=== PATIENT | female | born 1940 | race Hispanic/Latino ===

== ENCOUNTER 2016-11-18 07:49 | Day surgery (SDC) | payer MEDICARE, OTHER ==
[2016-11-18 09:05] VITALS: BMI 29.2
[2016-11-18] MEDS ORDERED: Etomidate 20 mg/10ml Inj IV ONE (11:37)
[2016-11-18 14:01] VITALS: TEMP 97.6; O2SAT 100
[2016-11-18 14:56] VITALS: BP 128/59; PULSE 78; RESP 13
== END 2016-11-18 14:00 | disposition home or self-care (01) ==
LOC: C.ENDO 07:49
PROVIDERS: ATTEND Internal Medicine Gastroenterology
DX: Z12.11 Encounter for screening for malignant neoplasm of colon (principal); D12.5 Benign neoplasm of sigmoid colon; K57.30 Diverticulosis of large intestine without perforation or abscess without bleeding; K64.1 Second degree hemorrhoids; Z80.9 Family history of malignant neoplasm, unspecified
CPT/HCPCS: 45380; 82948; 88305; J3010

== ENCOUNTER 2017-07-04 07:05 | Inpatient (IN) | payer MEDICARE, OTHER ==
[2017-06-29 07:54] VITALS: BMI 33.5
[2017-07-04] MEDS ORDERED: Bupivacaine HCl 0.5% PF (10 ml) Inj ONE (07:32)
[2017-07-04] MEDS ORDERED: Lidocaine 2% Inj (20ml) ONE (07:32)
[2017-07-04] MEDS ORDERED: ceFAZolin IV 1 gm in Dextrose 1 GM/50 ML BAG IVPB ONE (07:32)
[2017-07-04] MEDS ORDERED: Propofol 10 mg/ml Inj (20 ML) ONE (08:07)
[2017-07-04] MEDS ORDERED: Midazolam 2 MG/2 ML VIAL ONE (08:09)
[2017-07-04] MEDS ORDERED: Lactated Ringer's 1,000 ML IV ONE (08:24)
[2017-07-04] MEDS ORDERED: Bacitracin Ointment 30 GM TUBE ONE (09:12)
[2017-07-04] MEDS ORDERED: Morphine 4 MG/ML VIAL ONE ×2 (10:38→10:42)
[2017-07-04] MEDS ORDERED: Dexamethasone 4 mg/1 ml ONE (10:47)
--- NOTE | 2017-07-04 11:53 | PCM.SURG1 ---
Surgeon's Initial Post Op Note - Surgeon's Notes Surgeon: Dr. Gabriel Rene Gas Line Installer: Dr. Nancy Tellez, Dr. Jose De Jesus Rondon Type of Anesthesia: General Endo Anesthesia Administered By: Dr. Tavera Pre-Operative Diagnosis: chronic pain right ankle with bone cyst/fragment at medial malleolus Operative Findings: see dictations. materials: vicryl 3-0, 4-0, monocril 3-0; intraop injection: 1cc of 4mg dexamethasone, 10cc of .5% marcaine plain Post-Operative Diagnosis: right ankle medial malleolus bone fragment Operation Performed: removal of right ankle medial malleolus bone cyst/bone fragment Specimen/Specimens Removed: none Estimated Blood Loss: EBL {In ML}: 2 Blood Products Given: N/A Drains Used: No Drains Post-Op Condition: Good Date of Surgery/Procedure: 07/04/17 Time of Surgery/Procedure: 08:30
[2017-07-04] MEDS ORDERED: ceFAZolin IV 1 gm in Dextrose 1 GM/50 ML BAG IVPB SCH (13:00)
--- NOTE | 2017-07-04 13:55 | CP.PCM.HP ---
History of Present Illness - History of Present Illness History of Present Illness: Patient is a 76 year old female with past medical history of CAD s/p stent placement, CVA in 2003, HTN, DM, Anxiety, Hyperlipidemia who is S/P Removal of Right Medial Malleolus Bone cyst/Bone fragment POD#0. Patient states that a year ago she was sleeping in bed when she rolled off of the bed and onto the floor. At that time she injured her right ankle. Since the injury, patient states that she has been using a cane, and has gotten injections with minimal to no relief. Patient lives alone. During the interview patient was complaining of 10/10 pain. Denies headaches, dizziness, cp, palpitations, sob, abdominal pain, urinary symptoms, changes in bowel habits. PMD: Dr Albarran Cardiology: Dr Barba Pharmacy: [facility] Allergies: Iodinated contrast, shellfish, Levofloxacin, Avelox, Latex Medications: Folic Acid 1mg daily, Triamterene/HCTZ 37.5/25mg QOD, Xanax 0.5mg BID, Metformin ER 750mg daily, Aricept 10mg PO HS, Gabapentin 200mg PO TID, Fenofibrate 145mg PO QOD, Crestor 5mg PO QOD, ASA 81mg Medical Hx: CAD s/p stent placement, CVA in 2003, HTN, Diabetes Mellitus, Anxiety, Hyperlipidemia Surgical Hx: Cholecystectomy, Skin graft, Ventral hernia repair, Left Carotid Endarterectomy, R coronary stent placement Social Hx: Smoked cigarettes for almost 40 years, quit in 2003 however started smoking again (smoked a "couple" of packs in the last two weeks because she was anxious and got into an incident with someone), Drinking 3-4 glasses of vodka in a month, Denies drug use; ambulates with a cane, lives alone, has two living children (one lives in [place] and the other lives in [place]) Family Hx: Mother - Thyroid issues, Son - Glaucoma Present on Admission - Present on Admission Any Indicators Present on Admission: No Review of Systems - Review of Systems All systems: reviewed and no additional remarkable complaints except - Constitutional Constitutional: absent: Chills, Fever - EENT Eyes: absent: Change in Vision Ears: absent: Dizziness - Cardiovascular Cardiovascular: absent: Chest Pain, Dyspnea, Palpitations - Respiratory Respiratory: absent: Cough, Wheezing - Gastrointestinal Gastrointestinal: absent: Abdominal Pain, Constipation, Cramping, Diarrhea, Nausea, Vomiting - Genitourinary Genitourinary: absent: Dysuria, Hematuria - Musculoskeletal Musculoskeletal: absent: Numbness - Neurological Neurological: absent: Dizziness, Numbness, Headaches, Tingling, Weakness - Psychiatric Psychiatric: absent: Anxiety, Depression Past Patient History - Past Medical History & Family History Past Medical History?: Yes - Past Social History Smoking Status: Current Some Days Smoker - CARDIAC Hx Cardiac Disorders: Yes (CAD STENTING 2007) Hx Hypercholesterolemia: Yes Hx Hypertension: Yes (no longer) Hx Peripheral Edema: Yes - PULMONARY Hx Respiratory Disorders: Yes (seasonal allergies) Hx Pneumonia: Yes (CHILDHOOD) - NEUROLOGICAL Hx Neurological Disorder: Yes HX Cerebrovascular Accident: Yes (2003 post speech deficit) - HEENT Hx HEENT Problems: Yes Hx Cataracts: Yes (BILAT IOL) - RENAL Hx Chronic Kidney Disease: Yes (RENAL INSUFFICIENCY) - ENDOCRINE/METABOLIC Hx Endocrine Disorders: Yes Hx Diabetes Mellitus Type 2: Yes - HEMATOLOGICAL/ONCOLOGICAL Hx Blood Disorders: Yes Hx Anemia: Yes Hx Blood Transfusions: Yes Hx Blood Transfusion Reaction: No - INTEGUMENTARY Hx Dermatological Problems: Yes Hx Hamm: Yes (right leg) - MUSCULOSKELETAL/RHEUMATOLOGICAL Hx Musculoskeletal Disorders: Yes (SPRAIN LEFT FOOT) Hx Fractures: Yes (RIGHT ANKLE ) - GASTROINTESTINAL Hx Gastrointestinal Disorders: Yes (CONSTIPATION) Hx Gall Bladder Disease: Yes (1990) - GENITOURINARY/GYNECOLOGICAL Hx Genitourinary Disorders: No - PSYCHIATRIC Hx Psychophysiologic Disorder: Yes Hx Anxiety: Yes Hx Substance Use: No - SURGICAL HISTORY Hx Surgeries: Yes Hx Cataract Extraction: Yes Hx Cardiac Catheterization: Yes Hx Cholecystectomy: Yes Hx Coronary Stent: Yes (RIGHT) Hx Herniorrhaphy: Yes Hx Vascular Surgery: Yes (left carotid ) Other/Comment: skin graft to hamm right leg - ANESTHESIA Hx Anesthesia: Yes Hx Anesthesia Reactions: No Hx Malignant Hyperthermia: No Has any member of the family had a problem w/ anesthesia?: No Meds Allergies/Adverse Reactions: Allergies Allergy/AdvReac Type Severity Reaction Status Date / Time Iodinated Contrast- Oral and Allergy Severe ANAPHYLAXIS Verified 11/18/16 09:05 IV Dye [Iodinated Contrast Media - Oral and] latex Allergy Severe ANAPHYLAXIS Verified 11/18/16 09:05 levofloxacin [From Levaquin] Allergy Severe ANAPHYLAXIS Verified 11/18/16 09:05 moxifloxacin [From Avelox] Allergy Severe ANAPHYLAXIS Verified 11/18/16 09:05 shellfish derived Allergy Severe ANAPHYLAXIS Verified 11/18/16 09:05 Physical Exam - Constitutional Appears: Well, Non-toxic Additional comments: In pain - Head Exam Head Exam: ATRAUMATIC, NORMAL INSPECTION - Eye Exam Eye Exam: EOMI, Normal appearance - ENT Exam ENT Exam: Mucous Membranes Moist - Neck Exam Neck exam: Positive for: Full Rom - Respiratory Exam Respiratory Exam: Clear to Auscultation Bilateral, NORMAL BREATHING PATTERN. absent: Rales, Rhonchi, Wheezes - Cardiovascular Exam Cardiovascular Exam: REGULAR RHYTHM, +S1, +S2. absent: Systolic Murmur - GI/Abdominal Exam GI & Abdominal Exam: Normal Bowel Sounds, Soft. absent: Guarding, Hernia, Rebound, Rigid, Tenderness - Extremities Exam Additional comments: Right lower extremity casted, patient able to move toes and sensation is intact + pedal pulses on the left lower extremity - Neurological Exam Neurological exam: Alert, Oriented x3 - Psychiatric Exam Psychiatric exam: Normal Affect, Normal Mood - Skin Skin Exam: Dry, Normal Color, Warm Results - Vital Signs Recent Vital Signs: Last Vital Signs Temp 98 F 07/04/17 11:06 Pulse 77 07/04/17 12:45 Resp 12 07/04/17 12:45 BP 115/60 07/04/17 12:45 Pulse Ox 97 07/04/17 12:45 - Labs Result Diagrams: 07/04/17 14:40 07/04/17 14:40 Labs: Laboratory Results - last 24 hr 07/04/17 07/04/17 07:51 11:12 POC Glucose (mg/dL) 101 157 H Assessment & Plan - Assessment and Plan (Free Text) Assessment: 1. History of Falls, s/p Right Medial Malleolus Bone cyst/Bone fragment removal POD#0 -Stable, afebrile -Admit to Med/Surg -F/U routine labs -Pain control: Percocet 1 tab PO Q4H prn -Physical therapy/Occupational therapy evaluation ordered -Social work referral -Podiatry on consult, Dr Conrad, help appreciated 2. History of CAD s/p stent placement -Continue Aspirin 81mg PO daily -Continue Crestor 10mg PO QOD -Continue Fenofibrate 145mg PO QOD 3. History of Diabetes Mellitus, peripheral neuropathy -Continue Metformin ER 750mg daily -Accuchecks ACHS -Gabapentin 200mg PO BID -Carbohydrate consistent diet 4. History of Hypertension -Continue Triamterene/HCTZ 37.5/25mg PO QOD -Monitor vitals 5. History of Hyperlipidemia -Continue Crestor 10mg PO QOD -Continue Fenofibrate 145mg PO QOD 6. History of CVA with residual speech deficit -Continue Aspirin 81mg PO daily -Continue Crestor 10mg PO QOD -Continue Fenofibrate 145mg PO QOD 7. Anxiety -Xanax 0.5mg BID prn Prophylactic Measures -Protonix 40mg PO daily -SCDS (left foot only) -Lovenox 40 SC daily (to start 07/06)
[2017-07-04 14:46] LABS: BASO # 0.1 K/uL (0.0-0.2); BASO % 0.7 % (0.0-2.0); EOS # 0.1 K/uL (0.0-0.7); EOS % 0.7 % (0.0-4.0); HEMOGLOBIN 14.6 g/dL (11.0-16.0); LYMPH # 1.4 K/uL (1.0-4.3); LYMPH % 11.4 % (20.0-40.0); MEAN CELL VOLUME 91.3 fL (81.0-99.0); MEAN CORPUSCULAR HEMOGLOBIN 31.2 pg (27.0-31.0); MEAN CORPUSCULAR HGB CONC 34.2 g/dL (33.0-37.0); MEAN PLATELET VOLUME 8.8 fL (7.2-11.7); MONO # 0.9 K/uL (0.0-0.8); MONO % 7.1 % (0.0-10.0); NEUT # 10.1 K/uL (1.8-7.0); NEUT % 80.1 % (50.0-75.0); NRBC % 0.1 % (0.0-2.0); RBC 4.68 Mil/uL (3.80-5.20); WHITE BLOOD COUNT 12.6 K/uL (4.8-10.8)
[2017-07-04 14:56] LABS: ALB/GLOB RATIO 1.2 (1.0-2.1); ALBUMIN 4.2 g/dL (3.5-5.0); CALCIUM 8.5 mg/dl (8.6-10.4)
[2017-07-04] MEDS ORDERED: HYDROmorphone 1 mg/ml ISec IVP ONE (16:23)
[2017-07-04] MEDS: hydroCHLOROthiazide-Triamterene 25 mg-37.5 mg Cap UD PO SCH (20:05)
[2017-07-05] MEDS: ceFAZolin IV 1 gm in Dextrose 1 GM/50 ML BAG IVPB SCH ×4 (00:30→23:55)
[2017-07-05] MEDS: Oxycodone/Acetaminophen 5/325 mg Tab PO PRN ×3 (01:59→21:36)
[2017-07-05] MEDS ORDERED: Tiotropium 18 mcg Cap For Inhalation INH SCH (08:00)
--- NOTE | 2017-07-05 08:22 | OP ---
PROCEDURE DATE: 07/04/2017 SURGEON: Gabriel Conrad DPM ASSISTANTS: Dr. Gomez, PGY2 and Dr. Rondon, PGY1. SIMULATION EDUCATOR: Eulogio Eddy. ANESTHESIA: General. PREOPERATIVE DIAGNOSIS: Chronic right ankle pain with loose bony fragments. POSTOPERATIVE DIAGNOSIS: Chronic right ankle pain with loose bony fragments. NAME OF PROCEDURE: Right ankle removal of bony fracture fragments. INDICATIONS: The patient is a 76-year-old female with the above mentioned diagnosis. The patient has exhausted all forms of conservative treatments at this time and now requires surgical intervention. The patient signed the consent after careful explanation of risks, benefits, complications, and alternatives for surgical procedure. No guarantees were given nor implied. N.p.o. status was confirmed prior to bringing the patient to the operating room. PREPARATION: The patient was brought in to the operating room and placed on the operating room table in a supine position. Time-out was performed for identification of the correct patient and procedure. After induction of general anesthesia, the right lower extremity was then prepped and draped in normal sterile manner, and the thigh tourniquet was inflated to 350 mmHg and the procedure began. DESCRIPTION OF PROCEDURE: Attention was directed to the right ankle where a 6 cm curvilinear incision was made posterior to the medial malleolus using a #15 blade. The incision was deepened through the subcutaneous tissue with sharp and blunt dissection with care being taken to identify and retract all vital neurovascular structures. All bleeders were cauterized and ligated as necessary. The incision was deepened through the periosteal tissue, and the distal aspect of the tibia and medial malleolus was visualized. The periosteum was then reflected medially and laterally. Under C-arm guidance, the loose bony fragment distal to the tip of the medial malleolus was visualized and resected. It was excised using sharp and blunt dissection and passed off of the operative field. The medial malleolus was then smoothed down with the rasp so that there were no rough edges prominent. The wound was then copiously irrigated with sterile normal saline. The subcutaneous tissue was then re-approximated with 3-0 Vicryl and 4-0 Vicryl, and the skin was re-approximated with 3-0 nylon. 10 mL of 0.5% Marcaine plain and 1 mL of dexamethasone 4 mg/kg was given in a local block-type fashion to the right ankle. Postoperative dressing including Xeroform, 4 x 4 gauze, Kerlix, and a posterior splint with Webril and Christian was applied to the right lower extremity. POSTOPERATIVE CONDITION: The patient tolerated the anesthesia and the procedure well and was escorted to the recovery room with vital signs stable and neurovascular status intact to the right lower extremity. Nancy Gomez DPM Gabriel Conrad DPM
--- NOTE | 2017-07-05 09:42 | CP.PCM.PN ---
Subjective - Date & Time of Evaluation Date of Evaluation: 07/05/17 Time of Evaluation: 09:38 - Subjective Subjective: PGY-[address] Watson. No acute events noted overnight. Patient stated she felt less pain today in her right ankle. She is S/P Removal of Right Medial Malleolus Bone cyst/Bone fragment POD#1. Denies headaches, dizziness, cp, palpitations, sob, abdominal pain, urinary symptoms, changes in bowel habits. Objective - Vital Signs/Intake and Output Vital Signs (last 24 hours): Temp Pulse Resp BP Pulse Ox 97.5 F L 75 18 125/75 95 07/05/17 08:40 07/05/17 08:40 07/05/17 08:40 07/05/17 08:40 07/05/17 08:40 Intake and Output: 07/05/17 07/05/17 06:59 18:59 Intake Total 170 Output Total 450 Balance -280 - Medications Medications: Current Medications Acetaminophen (Tylenol 325mg Tab) 650 mg PO Q6 PRN PRN Reason: Pain, Mild (1-3) Alprazolam (Xanax) 0.5 mg PO BID PRN PRN Reason: Anxiety Aspirin (Aspirin Chewable) 81 mg PO DAILY [facility] Docusate Sodium (Colace) 100 mg PO BID [facility] Last Admin: 07/04/17 22:36 Dose: Not Given Enoxaparin Sodium (Lovenox) 40 mg SC DAILY [facility] Fenofibrate (Tricor) 145 mg PO QOD6 [facility] Folic Acid (Folic Acid) 1 mg PO DAILY [facility] Gabapentin (Neurontin) 200 mg PO BID [facility] Last Admin: 07/04/17 22:48 Dose: Not Given Cefazolin Sodium/Dextrose (Ancef Iv 1 Gm Duplex) 1 gm in 50 mls @ 100 mls/hr IVPB Q8H [facility] Last Admin: 07/05/17 07:48 Dose: 100 mls/hr Metformin HCl (Glucophage Xr) 750 mg PO DAILY [facility] Oxycodone/Acetaminophen (Percocet 5/325 Mg Tab) 1 tab PO Q4H PRN PRN Reason: Pain, moderate (4-7) Stop: 07/07/17 11:10 Last Admin: 07/05/17 01:59 Dose: 1 tab Rosuvastatin Calcium (Crestor) 10 mg PO QOD6 [facility] Last Admin: 07/04/17 22:36 Dose: Not Given Tiotropium [place] (Spiriva) 18 mcg INH RQ24 [facility] Triamterene/HCTZ (Dyazide 25 Mg-37.5 Mg) 1 cap PO QOD6 [facility] Last Admin: 07/04/17 20:05 Dose: 1 cap - Labs Labs: 07/04/17 14:40 07/04/17 14:40 - Additional Findings Additional findings: Appears: Well, Non-toxic - Head Exam Head Exam: ATRAUMATIC, NORMAL INSPECTION - Eye Exam Eye Exam: EOMI, Normal appearance - ENT Exam ENT Exam: Mucous Membranes Moist - Neck Exam Neck exam: Positive for: Full Rom - Respiratory Exam Respiratory Exam: Clear to Auscultation Bilateral, NORMAL BREATHING PATTERN. absent: Rales, Rhonchi, Wheezes - Cardiovascular Exam Cardiovascular Exam: REGULAR RHYTHM, +S1, +S2. absent: Systolic Murmur - GI/Abdominal Exam GI & Abdominal Exam: Normal Bowel Sounds, Soft. absent: Guarding, Hernia, Rebound, Rigid, Tenderness - Extremities Exam Additional comments: Right lower extremity casted, patient able to move toes and sensation is intact + pedal pulses on the left lower extremity - Neurological Exam Neurological exam: Alert, Oriented x3 - Psychiatric Exam Psychiatric exam: Normal Affect, Normal Mood - Skin Skin Exam: Dry, Normal Color, Warm Assessment and Plan - Assessment and Plan (Free Text) Assessment: 1. s/p Right Medial Malleolus Bone cyst/Bone fragment removal POD#0 -s/p Right Medial Malleolus Bone cyst/Bone fragment removal POD#1 -Podiatry on consult, Dr Conrad, help appreciated * continue nonweightbearing with posterior splint and crutches/walker to RLE * d/c abx 07/06/17 -Stable, afebrile -Pain control: Percocet 1 tab PO Q4H prn; Dilaudid 0.5mg IVP Q4H PRN -Physical therapy/Occupational therapy evaluation ordered -Social work referral 2. History of CAD s/p stent placement -Continue Aspirin 81mg PO daily -Continue Crestor 10mg PO QOD -Continue Fenofibrate 145mg PO QOD 3. History of Diabetes Mellitus, peripheral neuropathy -Continue Metformin ER 750mg daily -Accuchecks ACHS -Gabapentin 200mg PO BID -Carbohydrate consistent diet 4. History of Hypertension -Continue Triamterene/HCTZ 37.5/25mg PO QOD -Monitor vitals 5. History of Hyperlipidemia -Continue Crestor 10mg PO QOD -Continue Fenofibrate 145mg PO QOD 6. History of CVA with residual speech deficit -Continue Aspirin 81mg PO daily -Continue Crestor 10mg PO QOD -Continue Fenofibrate 145mg PO QOD 7. Anxiety -Xanax 0.5mg BID prn Prophylactic Measures -Protonix 40mg PO daily -SCDS (left foot only) -Lovenox 40 SC daily (to start 07/06) DISPOSITION: Patient will be discharged to subacute rehab facility
--- NOTE | 2017-07-05 10:51 | RAD ---
PROCEDURE: Fluoroscopy up to 1 hr. HISTORY: COMPARISON: None TECHNIQUE: Standard protocol for this study/examination. FINDINGS: Total fluoroscopic time (continuous mode) utilized during the procedure: 66.6 seconds. Macro densitometry 3.69 IMPRESSION: Submitted images from the current procedure: 3.0
--- NOTE | 2017-07-05 11:12 | CP.PCM.PN ---
Subjective - Date & Time of Evaluation Date of Evaluation: 07/05/17 Time of Evaluation: 11:08 - Subjective Subjective: Patient is a 76 year old female with past medical history of CAD s/p stent placement, CVA in 2004, HTN, DM, Anxiety, Hyperlipidemia who is S/P Removal of Right Medial Malleolus Bone cyst/Bone fragment POD#1. Patient is resting comfortably in bed in NAD and AAOx3. Patient seen at bedside with attending Dr. Conrad. Patient complains of severe pain to foot and ankle. Patient states that the pain is somewhat controlled by percocet. Patient's posterior splint to right lower extremity remains clean,dry,intact. Patient denies any other acute events overnight. She denies n/f/v/c/d/sob. Objective - Vital Signs/Intake and Output Vital Signs (last 24 hours): Temp Pulse Resp BP Pulse Ox 97.5 F L 75 18 125/75 95 07/05/17 08:40 07/05/17 08:40 07/05/17 08:40 07/05/17 08:40 07/05/17 08:40 Intake and Output: 07/05/17 07/05/17 06:59 18:59 Intake Total 170 Output Total 450 Balance -280 - Medications Medications: Current Medications Acetaminophen (Tylenol 325mg Tab) 650 mg PO Q6 PRN PRN Reason: Pain, Mild (1-3) Alprazolam (Xanax) 0.5 mg PO BID PRN PRN Reason: Anxiety Last Admin: 07/05/17 09:55 Dose: 0.5 mg Aspirin (Aspirin Chewable) 81 mg PO DAILY [facility] Last Admin: 07/05/17 09:49 Dose: 81 mg Docusate Sodium (Colace) 100 mg PO BID [facility] Last Admin: 07/05/17 09:50 Dose: 100 mg Enoxaparin Sodium (Lovenox) 40 mg SC DAILY [facility] Fenofibrate (Tricor) 145 mg PO QOD6 [facility] Folic Acid (Folic Acid) 1 mg PO DAILY [facility] Last Admin: 07/05/17 09:50 Dose: 1 mg Gabapentin (Neurontin) 200 mg PO BID [facility] Last Admin: 07/05/17 09:50 Dose: 200 mg Cefazolin Sodium/Dextrose (Ancef Iv 1 Gm Duplex) 1 gm in 50 mls @ 100 mls/hr IVPB Q8H [facility] Last Admin: 07/05/17 07:48 Dose: 100 mls/hr Metformin HCl (Glucophage Xr) 750 mg PO 1800 [facility] Oxycodone/Acetaminophen (Percocet 5/325 Mg Tab) 1 tab PO Q4H PRN PRN Reason: Pain, moderate (4-7) Stop: 07/07/17 11:10 Last Admin: 07/05/17 01:59 Dose: 1 tab Rosuvastatin Calcium (Crestor) 10 mg PO QOD6 [facility] Last Admin: 07/04/17 22:36 Dose: Not Given Tiotropium [place] (Spiriva) 18 mcg INH RQ24 [facility] Triamterene/HCTZ (Dyazide 25 Mg-37.5 Mg) 1 cap PO QOD6 [facility] Last Admin: 07/04/17 20:05 Dose: 1 cap - Labs Labs: 07/04/17 14:40 07/04/17 14:40 - Constitutional Appears: Well, Non-toxic, No Acute Distress - Extremities Exam Additional comments: RLE focused: posterior splint to RLE remains c/d/i able to wiggle toes cft < 3 sec to all digits no calf pain or tenderness - Neurological Exam Neurological Exam: Alert, Awake, Oriented x3 - Psychiatric Exam Psychiatric exam: Normal Affect, Normal Mood Assessment and Plan - Assessment and Plan (Free Text) Assessment: 76 y/o female seen at bedside 1 day s/p right ankle removal of bony fragment Plan: patient evaluated and seen at bedside with attending Dr. Conrad labs and vitals reviewed; afebrile continue nonweightbearing with posterior splint and crutches/walker to RLE cont. PT cont. pain management d/c abx after today cont dvt prophylaxis patient to be d/c to subacute rehab facility podiatry will continue to monitor while patient reamins in house
[2017-07-05 11:16] LABS: BASO % 0.4 % (0.0-2.0); EOS # 0.2 K/uL (0.0-0.7); EOS % 1.7 % (0.0-4.0); HEMOGLOBIN 13.9 g/dL (11.0-16.0); LYMPH # 2.1 K/uL (1.0-4.3); LYMPH % 20.8 % (20.0-40.0); MEAN CELL VOLUME 90.9 fL (81.0-99.0); MEAN CORPUSCULAR HEMOGLOBIN 30.7 pg (27.0-31.0); MEAN CORPUSCULAR HGB CONC 33.8 g/dL (33.0-37.0); MEAN PLATELET VOLUME 8.9 fL (7.2-11.7); MONO # 0.6 K/uL (0.0-0.8); MONO % 6.3 % (0.0-10.0); NEUT # 7.2 K/uL (1.8-7.0); NEUT % 70.8 % (50.0-75.0); RBC 4.52 Mil/uL (3.80-5.20); RED CELL DISTRIBUTION WIDTH 14.1 % (11.5-14.5); WHITE BLOOD COUNT 10.2 K/uL (4.8-10.8)
[2017-07-05 11:41] LABS: ALB/GLOB RATIO 1.3 (1.0-2.1); ALBUMIN 3.9 g/dL (3.5-5.0); CALCIUM 8.5 mg/dl (8.6-10.4)
[2017-07-05] MEDS ORDERED: Potassium Chloride 20 mEq ER Tab PO ONE (15:51)
[2017-07-06 06:47] LABS: BASO # 0.1 K/uL (0.0-0.2); BASO % 1.2 % (0.0-2.0); EOS # 0.7 K/uL (0.0-0.7); EOS % 6.4 % (0.0-4.0); HEMOGLOBIN 14.3 g/dL (11.0-16.0); LYMPH # 2.4 K/uL (1.0-4.3); LYMPH % 22.1 % (20.0-40.0); MEAN CELL VOLUME 91.6 fL (81.0-99.0); MEAN CORPUSCULAR HEMOGLOBIN 30.5 pg (27.0-31.0); MEAN CORPUSCULAR HGB CONC 33.3 g/dL (33.0-37.0); MEAN PLATELET VOLUME 8.6 fL (7.2-11.7); MONO # 1.2 K/uL (0.0-0.8); MONO % 11.4 % (0.0-10.0); NEUT # 6.3 K/uL (1.8-7.0); NEUT % 58.9 % (50.0-75.0); RBC 4.68 Mil/uL (3.80-5.20); RED CELL DISTRIBUTION WIDTH 14.2 % (11.5-14.5); WHITE BLOOD COUNT 10.7 K/uL (4.8-10.8)
[2017-07-06 07:11] LABS: ALB/GLOB RATIO 1.2 (1.0-2.1); ALBUMIN 3.8 g/dL (3.5-5.0)
[2017-07-06] MEDS: ceFAZolin IV 1 gm in Dextrose 1 GM/50 ML BAG IVPB SCH (07:57)
--- NOTE | 2017-07-06 09:09 | CP.PCM.PN ---
Subjective - Date & Time of Evaluation Date of Evaluation: 07/06/17 Time of Evaluation: 09:04 - Subjective Subjective: s/p 2 days ankle surgery rt .Pt c/o pain rt ankle/heel .denies fever ,chills. Bandages changed and wound inspected . no signs of infection noted , incision site well coapted. applied xeroform dry sterile dressing rt . Kept splint off today . will order surgical shoe and keep nwb . Objective - Vital Signs/Intake and Output Vital Signs (last 24 hours): Temp Pulse Resp BP Pulse Ox 97.2 F L 82 20 159/83 H 98 07/05/17 23:15 07/05/17 23:15 07/05/17 23:15 07/05/17 23:15 07/05/17 23:15 - Medications Medications: Current Medications Acetaminophen (Tylenol 325mg Tab) 650 mg PO Q6 PRN PRN Reason: Pain, Mild (1-3) Alprazolam (Xanax) 0.5 mg PO BID PRN PRN Reason: Anxiety Last Admin: 07/05/17 21:38 Dose: 0.5 mg Aspirin (Aspirin Chewable) 81 mg PO DAILY [facility] Last Admin: 07/05/17 09:49 Dose: 81 mg Docusate Sodium (Colace) 100 mg PO BID [facility] Last Admin: 07/05/17 17:34 Dose: 100 mg Enoxaparin Sodium (Lovenox) 40 mg SC DAILY [facility] Fenofibrate (Tricor) 145 mg PO QOD6 [facility] Folic Acid (Folic Acid) 1 mg PO DAILY [facility] Last Admin: 07/05/17 09:50 Dose: 1 mg Gabapentin (Neurontin) 200 mg PO BID [facility] Last Admin: 07/05/17 17:34 Dose: 200 mg Hydromorphone HCl (Dilaudid) 0.5 mg IVP Q4H PRN PRN Reason: Pain, severe (8-10) Last Admin: 07/06/17 07:57 Dose: 0.5 mg Cefazolin Sodium/Dextrose (Ancef Iv 1 Gm Duplex) 1 gm in 50 mls @ 100 mls/hr IVPB Q8H [facility] Last Admin: 07/06/17 07:57 Dose: 100 mls/hr Metformin HCl (Glucophage Xr) 750 mg PO 1800 [facility] Last Admin: 07/05/17 17:34 Dose: 750 mg Oxycodone/Acetaminophen (Percocet 5/325 Mg Tab) 1 tab PO Q4H PRN PRN Reason: Pain, moderate (4-7) Stop: 07/07/17 11:10 Last Admin: 07/05/17 21:36 Dose: 1 tab Rosuvastatin Calcium (Crestor) 10 mg PO QOD6 [facility] Last Admin: 07/04/17 22:36 Dose: Not Given Tiotropium [place] (Spiriva) 18 mcg INH RQ24 [facility] Triamterene/HCTZ (Dyazide 25 Mg-37.5 Mg) 1 cap PO QOD6 [facility] Last Admin: 07/04/17 20:05 Dose: 1 cap - Labs Labs: 07/06/17 06:33 07/06/17 06:33
[2017-07-06] MEDS: Oxycodone/Acetaminophen 5/325 mg Tab PO PRN (09:15)
[2017-07-06] MEDS: Enoxaparin 40 mg Syringe SC SCH (09:16)
--- NOTE | 2017-07-06 11:48 | CP.PCM.PN ---
Subjective - Date & Time of Evaluation Date of Evaluation: 07/06/17 Time of Evaluation: 11:43 - Subjective Subjective: PGY-[address] Watson. No acute events noted overnight. Soft cast removed from podiatry today which relieved some of her pain. She is S/P Removal of Right Medial Malleolus Bone cyst/Bone fragment POD#2. Denies headaches, dizziness, cp, palpitations, sob, abdominal pain, urinary symptoms, changes in bowel habits. Objective - Vital Signs/Intake and Output Vital Signs (last 24 hours): Temp Pulse Resp BP Pulse Ox 98.8 F 79 20 153/79 H 95 07/06/17 08:30 07/06/17 08:30 07/06/17 08:30 07/06/17 08:30 07/06/17 08:30 - Medications Medications: Current Medications Acetaminophen (Tylenol 325mg Tab) 650 mg PO Q6 PRN PRN Reason: Pain, Mild (1-3) Alprazolam (Xanax) 0.5 mg PO BID PRN PRN Reason: Anxiety Last Admin: 07/06/17 09:27 Dose: 0.5 mg Aspirin (Aspirin Chewable) 81 mg PO DAILY [facility] Last Admin: 07/06/17 09:14 Dose: 81 mg Docusate Sodium (Colace) 100 mg PO BID [facility] Last Admin: 07/06/17 09:14 Dose: 100 mg Enoxaparin Sodium (Lovenox) 40 mg SC DAILY [facility] Last Admin: 07/06/17 09:16 Dose: 40 mg Fenofibrate (Tricor) 145 mg PO QOD6 [facility] Folic Acid (Folic Acid) 1 mg PO DAILY [facility] Last Admin: 07/06/17 09:15 Dose: 1 mg Gabapentin (Neurontin) 200 mg PO BID [facility] Last Admin: 07/06/17 09:15 Dose: 200 mg Hydromorphone HCl (Dilaudid) 0.5 mg IVP Q4H PRN PRN Reason: Pain, severe (8-10) Last Admin: 07/06/17 07:57 Dose: 0.5 mg Cefazolin Sodium/Dextrose (Ancef Iv 1 Gm Duplex) 1 gm in 50 mls @ 100 mls/hr IVPB Q8H [facility] Last Admin: 07/06/17 07:57 Dose: 100 mls/hr Metformin HCl (Glucophage Xr) 750 mg PO 1800 [facility] Last Admin: 07/05/17 17:34 Dose: 750 mg Oxycodone/Acetaminophen (Percocet 5/325 Mg Tab) 1 tab PO Q4H PRN PRN Reason: Pain, moderate (4-7) Stop: 07/07/17 11:10 Last Admin: 07/06/17 09:15 Dose: 1 tab Rosuvastatin Calcium (Crestor) 10 mg PO QOD6 [facility] Last Admin: 07/04/17 22:36 Dose: Not Given Tiotropium [place] (Spiriva) 18 mcg INH RQ24 [facility] Triamterene/HCTZ (Dyazide 25 Mg-37.5 Mg) 1 cap PO QOD6 [facility] Last Admin: 07/04/17 20:05 Dose: 1 cap - Labs Labs: 07/06/17 06:33 07/06/17 06:33 - Additional Findings Additional findings: Appears: Well, Non-toxic - Head Exam Head Exam: ATRAUMATIC, NORMAL INSPECTION - Eye Exam Eye Exam: EOMI, Normal appearance - ENT Exam ENT Exam: Mucous Membranes Moist - Neck Exam Neck exam: Positive for: Full Rom - Respiratory Exam Respiratory Exam: Clear to Auscultation Bilateral, NORMAL BREATHING PATTERN. absent: Rales, Rhonchi, Wheezes - Cardiovascular Exam Cardiovascular Exam: REGULAR RHYTHM, +S1, +S2. absent: Systolic Murmur - GI/Abdominal Exam GI & Abdominal Exam: Normal Bowel Sounds, Soft. absent: Guarding, Hernia, Rebound, Rigid, Tenderness - Extremities Exam Additional comments: Right lower extremity w/ dressing which was c/d/i, patient able to move toes and sensation is intact + pedal pulses on the left lower extremity - Neurological Exam Neurological exam: Alert, Oriented x3 - Psychiatric Exam Psychiatric exam: Normal Affect, Normal Mood - Skin Skin Exam: Dry, Normal Color, Warm Assessment and Plan - Assessment and Plan (Free Text) Assessment: 1. s/p Right Medial Malleolus Bone cyst/Bone fragment removal POD#0 -s/p Right Medial Malleolus Bone cyst/Bone fragment removal POD#1 -Podiatry on consult, Dr Conrad, help appreciated * continue nonweightbearing with posterior splint and crutches/walker to RLE * d/c cefazolin 07/06/17 -Stable, afebrile -Pain control: Percocet 1 tab PO Q4H prn; Dilaudid 0.5mg IVP Q4H PRN -Physical therapy/Occupational therapy evaluation ordered -Social work referral 2. History of CAD s/p stent placement -Continue Aspirin 81mg PO daily -Continue Crestor 10mg PO QOD -Continue Fenofibrate 145mg PO QOD 3. History of Diabetes Mellitus, peripheral neuropathy -Continue Metformin ER 750mg daily -Accuchecks ACHS -Gabapentin 200mg PO BID -Carbohydrate consistent diet 4. History of Hypertension -Continue Triamterene/HCTZ 37.5/25mg PO QOD -Monitor vitals 5. History of Hyperlipidemia -Continue Crestor 10mg PO QOD -Continue Fenofibrate 145mg PO QOD 6. History of CVA with residual speech deficit -Continue Aspirin 81mg PO daily -Continue Crestor 10mg PO QOD -Continue Fenofibrate 145mg PO QOD 7. Anxiety -Xanax 0.5mg BID prn Prophylactic Measures -Protonix 40mg PO daily -SCDS (left foot only), Heparin 5000u SC Q8H -Lovenox 40 SC daily (to start 07/06) DISPOSITION: Patient will be discharged to subacute rehab facility
[2017-07-06] MEDS: hydroCHLOROthiazide-Triamterene 25 mg-37.5 mg Cap UD PO SCH ×2 (19:32→19:58)
[2017-07-07 06:46] LABS: BASO # 0.1 K/uL (0.0-0.2); BASO % 0.8 % (0.0-2.0); EOS # 0.9 K/uL (0.0-0.7); EOS % 8.4 % (0.0-4.0); HEMOGLOBIN 14.4 g/dL (11.0-16.0); LYMPH # 1.7 K/uL (1.0-4.3); LYMPH % 16.4 % (20.0-40.0); MEAN CELL VOLUME 91.3 fL (81.0-99.0); MEAN CORPUSCULAR HEMOGLOBIN 29.5 pg (27.0-31.0); MEAN CORPUSCULAR HGB CONC 32.3 g/dL (33.0-37.0); MEAN PLATELET VOLUME 8.5 fL (7.2-11.7); MONO # 1.2 K/uL (0.0-0.8); NEUT # 6.5 K/uL (1.8-7.0); NEUT % 62.4 % (50.0-75.0); RBC 4.9 Mil/uL (3.80-5.20); RED CELL DISTRIBUTION WIDTH 13.9 % (11.5-14.5); WHITE BLOOD COUNT 10.4 K/uL (4.8-10.8)
[2017-07-07 07:56] LABS: ALB/GLOB RATIO 1.2 (1.0-2.1); ALBUMIN 3.8 g/dL (3.5-5.0); ALT/SGPT 19 U/L (9-52); AST/SGOT 34 U/L (14-36); BLOOD UREA NITROGEN 13 mg/dL (7-17); CALCIUM 8.3 mg/dl (8.6-10.4); GFR AFRICAN-AMERICAN > 60; GFR NON-AFRICAN AMERICAN 54
[2017-07-07] MEDS: Enoxaparin 40 mg Syringe SC SCH (09:49)
[2017-07-07] MEDS: Oxycodone/Acetaminophen 5/325 mg Tab PO PRN (11:11)
--- NOTE | 2017-07-07 13:36 | CP.PCM.PN ---
Subjective - Date & Time of Evaluation Date of Evaluation: 07/07/17 Time of Evaluation: 13:32 - Subjective Subjective: Patient is a 76 year old female seen at bedside with attending Dr. Conrad 3 days S/P Removal of Right Medial Malleolus Bone cyst/Bone fragment. Patient is resting comfortably in bed in NAD and AAOx3. Patient complains of severe pain to foot and ankle and is icing the ankle at the time of visit. Patient states that she did PT yesterday but was unable to hop very far without having pain in her right ankle and foot. Patient's dressing to RLE remains c/d/i. Patient denies any other acute events overnight. She denies n/f/v/c/d/sob. Objective - Vital Signs/Intake and Output Vital Signs (last 24 hours): Temp Pulse Resp BP Pulse Ox 97.7 F 78 18 135/83 96 07/07/17 08:15 07/07/17 08:15 07/07/17 08:15 07/07/17 08:15 07/07/17 08:15 Intake and Output: 07/07/17 07/07/17 06:59 18:59 Intake Total 320 Balance 320 - Medications Medications: Current Medications Acetaminophen (Tylenol 325mg Tab) 650 mg PO Q6 PRN PRN Reason: Pain, Mild (1-3) Alprazolam (Xanax) 0.5 mg PO BID PRN PRN Reason: Anxiety Last Admin: 07/07/17 10:01 Dose: 0.5 mg Aspirin (Aspirin Chewable) 81 mg PO DAILY [facility] Last Admin: 07/07/17 09:49 Dose: 81 mg Docusate Sodium (Colace) 100 mg PO BID [facility] Last Admin: 07/07/17 09:49 Dose: 100 mg Enoxaparin Sodium (Lovenox) 40 mg SC DAILY [facility] Last Admin: 07/07/17 09:49 Dose: 40 mg Fenofibrate (Tricor) 145 mg PO QOD6 [facility] Last Admin: 07/06/17 19:59 Dose: Not Given Folic Acid (Folic Acid) 1 mg PO DAILY [facility] Last Admin: 07/07/17 09:49 Dose: 1 mg Gabapentin (Neurontin) 200 mg PO BID [facility] Last Admin: 07/07/17 09:49 Dose: 200 mg Hydromorphone HCl (Dilaudid) 0.5 mg IVP Q4H PRN PRN Reason: Pain, severe (8-10) Last Admin: 07/06/17 07:57 Dose: 0.5 mg Piperacillin Sod/Tazobactam (Sod 3.375 gm/ Sodium Chloride) 100 mls @ 200 mls/ hr IVPB Q6H [facility] Vancomycin HCl 1,000 mg/ (Sodium Chloride) 250 mls @ 166.6 mls/hr IVPB Q12H [facility] Metformin HCl (Glucophage Xr) 750 mg PO 1800 [facility] Last Admin: 07/06/17 19:49 Dose: Not Given Rosuvastatin Calcium (Crestor) 10 mg PO QOD6 [facility] Last Admin: 07/06/17 19:32 Dose: 10 mg Tiotropium Elliott (Spiriva) 18 mcg INH RQ24 [facility] Triamterene/HCTZ (Dyazide 25 Mg-37.5 Mg) 1 cap PO QOD6 [facility] Last Admin: 07/06/17 19:58 Dose: Not Given - Labs Labs: 07/07/17 06:22 07/07/17 06:22 - Constitutional Appears: Well, Non-toxic, No Acute Distress - Extremities Exam Additional comments: RLE focused: vasc: lightly palpable pedal pulses, TG warm to warm, CFT < 4 sec to all digits , able to wiggle toes neuro: grossly intact derm: surgical incision site well coapted, sutures intact, no dehiscence, no ascending cellulitis, nonpitting edema and erythema noted to dorsum of foot and ankle, hypopigmented and maceration noted to anterior ankle, no fluctuance, no active bleeding or drainage ortho: able to wiggle toes and slightly DF and PF foot, guarding due to pain - Neurological Exam Neurological Exam: Alert, Awake, Oriented x3 - Psychiatric Exam Psychiatric exam: Normal Affect Assessment and Plan - Assessment and Plan (Free Text) Assessment: 76 y/o female seen at bedside 3 days s/p right ankle medial malleolus excision of bone cyst/ fragment Plan: patient evaluated and chart reviewed seen at bedside with attending Dr. Conrad labs and vitals reviewed; afebrile. WBC 10.4 applied xeroform, DSD to RLE cont. PT cont. pain mgmt ID consulted for redness/swelling around ankle started Vanc/zosyn podiatry will continue to monitor closely
[2017-07-07] MEDS: Piperacill/Tazo 3.375gm in Dex 3.375 GM/50 ML BAG IVPB SCH ×2 (14:20→19:59)
[2017-07-07] MEDS: Vancomycin 1 gm/NS 200 ml 1 GM/200 ML BAG IVPB SCH (15:02)
--- NOTE | 2017-07-07 18:01 | CP.PCM.CON ---
History of Present Illness - History of Present Illness History of Present Illness: 76 year old female is S/P Removal of Right Medial Malleolus Bone cyst/Bone fragment and referred for ID eval and antibiotic management post op for periincisional redness and swelling . Patient states that a year ago she was sleeping in bed when she rolled off of the bed and onto the floor. At that time she injured her right ankle. Since the injury, patient states that she has been using a cane, and has gotten injections with minimal to no relief. Allergies: Iodinated contrast, shellfish, Levofloxacin, Avelox, Latex Medications: Folic Acid 1mg daily, Triamterene/HCTZ 37.5/25mg QOD, Xanax 0.5mg BID, Metformin ER 750mg daily, Aricept 10mg PO HS, Gabapentin 200mg PO TID, Fenofibrate 145mg PO QOD, Crestor 5mg PO QOD, ASA 81mg Medical Hx: CAD s/p stent placement, CVA in 2003, HTN, Diabetes Mellitus, Anxiety, Hyperlipidemia Surgical Hx: Cholecystectomy, Skin graft, Ventral hernia repair, Left Carotid Endarterectomy, R coronary stent placement Social Hx: Smoked cigarettes for almost 40 years, quit in 2003 however started smoking again (smoked a "couple" of packs in the last two weeks because she was anxious and got into an incident with someone), Drinking 3-4 glasses of vodka in a month, Denies drug use; ambulates with a cane, lives alone, has two living children (one lives in [place] and the other lives in [place]) Family Hx: Mother - Thyroid issues, Son - Glaucoma Review of Systems - Review of Systems All systems: reviewed and no additional remarkable complaints except - Constitutional Constitutional: As Per HPI - EENT Eyes: absent: As Per HPI, Blind Spots, Blurred Vision, Change in Vision, Decreased Night Vision, Diplopia, Discharge, Dry Eye, Exophthalmos, Floaters, Irritation, Itchy Eyes, Loss of Peripheral Vision, Pain, Photophobia, Requires Corrective Lenses, Sees Flashes, Spots in Vision, Tunnel Vision, Other Visual Disturbances, Loss of Vision, Other Ears: absent: As Per HPI, Decreased Hearing, Ear Discharge, Ear Pain, Tinnitus, Abnormal Hearing, Disequilibrium, Dizziness, Other Nose/Mouth/Throat: absent: As Per HPI, Epistaxis, Nasal Congestion, Nasal Discharge, Nasal Obstruction, Nasal Trauma, Nose Pain, Post Nasal Drip, Sinus Pain, Sinus Pressure, Bleeding Gums, Change in Voice, Dental Pain, Dry Mouth, Dysphagia, Halitosis, Hoarsness, Lip Swelling, Mouth Lesions, Mouth Pain, Odynophagia, Sore Throat, Throat Swelling, Tongue Swelling, Facial Pain, Neck Pain, Neck Mass, Other - Breasts Breasts: absent: As Per HPI, Change in Shape, Mass, Pain, Nipple Discharge, Nipple Inversion, Skin Changes, Swelling, Other - Cardiovascular Cardiovascular: absent: As Per HPI, Acrocyanosis, Chest Pain, Chest Pain at Rest , Chest Pain with Activity, Claudication, Diaphoresis, Dyspnea, Dyspnea on Exertion, Edema, Irregular Heart Rhythm, Pain Radiating to Arm/Neck/Jaw, Leg Edema, Leg Ulcers, Lightheadedness, Orthopnea, Palpitations, Paroxysmal Nocturnal Dyspnea, Pedal Edema, Radiating Pain, Rapid Heart Rate, Slow Heart Rate, Syncope, Other - Respiratory Respiratory: absent: As Per HPI, Cough, Dyspnea, Hemoptysis, Dyspnea on Exertion , Wheezing, Snoring, Stridor, Pain on Inspiration, Chest Congestion, Excessive Mucous Production, Change in Mucous Color, Pain with Coughing, Other - Gastrointestinal Gastrointestinal: absent: As Per HPI, Abdominal Pain, Belching, Bloating, Change in Bowel Habits, Change in Stool Character, Coffee Ground Emesis, Constipation, Cramping, Diarrhea, Dyspepsia, Dysphagia, Early Satiety, Excessive Flatus, Fecal Incontinence, Heartburn, Hematemesis, Hematochezia, Loose Stools, Melena, Nausea, Odynophagia, Temesmus, Vomiting, Other - Genitourinary Genitourinary: absent: As Per HPI, Change in Urinary Stream, Difficulty Urinating, Dysuria, Flank Pain, Hematuria, Pyuria, Nocturia, Urinary Incontinence, Urinary Frequency, Urinary Hesitance, Urinary Urgency, Voiding Freq/Small Amts, Freq UTI, Hx Renal/Bladder Calculi, Hx /Renal Surgery, Bladder Distension, Other - Reproductive: Female Reproductive:Female: absent: As Per HPI, Amenorrhea, Amenorrhea/ Control, Currently Menstual, Cycle <21 Days, Cycle >35 Days, Cycle Variable, Menses 1-7 Days, Menses >/= 8 Days, Menses Variable, Cycle > 4 Weeks Between, No Menses for 6 Months, Heavy Menses, Light Menses, Normal Menses, Spotting Between Cycles , S/P Hysterectomy, Menopausal, Post Menopausal, Premenarche, Abnormal Vaginal Bleeding, Dysmenorrhea, Dyspareunia, Genital Lesions, Genital Pruritis, Pelvic Pain, Prolapse Symptoms, Sexual Dysfunction, Vaginal Discharge, Vaginal Dryness , Vaginal Odor, Vaginal Pruritis, Other - Menstruation Menstruation: absent: As Per HPI, Amenorrhea, Amenorrhea/ Control, Currently Menstual, Cycle <21 Days, Cycle >35 Days, Cycle Variable, Menses 1-7 Days, Menses >/= 8 Days, Menses Variable, Cycle > 4 Weeks Between, No Menses for 6 Months, Heavy Menses, Light Menses, Normal Menses, Spotting Between Cycles , S/P Hysterectomy, Menopausal, Post Menopausal, Premenarche, Abnormal Vaginal Bleeding, Dysmenorrhea, Other - Musculoskeletal Musculoskeletal: As Per HPI - Integumentary Integumentary: As Per HPI - Neurological Neurological: absent: As Per HPI, Abnormal Gait, Abnormal Hearing, Abnormal Movements, Abnormal Speech, Behavioral Changes, Burning Sensations, Confusion, Convulsions, Disequilibrium, Dizziness, Numbness, Focal Weakness, Frequent Falls , Headaches, Lack of Coordination, Loss of Vision, Memory Loss, Paresthesias, Radicular Pain, Restless Legs, Sensory Deficit, Syncope, Tingling, Tremor, Vertigo, Weakness, Other Visual Disturbances, Other - Psychiatric Psychiatric: absent: As Per HPI, Abnormal Sleep Pattern, Anhedonia, Anxiety, Auditory Hallucinations, Behavioral Changes, Change in Appetite, Change in Libido, Confusion, Depression, Difficulty Concentrating, Hallucinations, Homicidal Ideation, Hopelessness, Irritability, Memory Loss, Mood Swings, Panic Attacks, Paranoia, Suicidal Ideation, Visual Hallucinations, Tactile Hallucinations, Other - Endocrine Endocrine: absent: As Per HPI, Change in Body Appearance, Change in Libido, Cold Intolorance, Deepening of Voice, Excessive Sweating, Fatigue, Flushing, Heat Intolorance, Increase in Ring/Shoe/Hat Size, Palpitations, Polydipsia, Polyphagia, Polyuria, Other - Hematologic/Lymphatic Hematologic: absent: As Per HPI, Easy Bleeding, Easy Bruising, Lymphadenopathy, Other Past Patient History - Past Medical History & Family History Past Medical History?: Yes - Past Social History Smoking Status: Current Some Days Smoker - CARDIAC Hx Cardiac Disorders: Yes (CAD s/p stent) Hx Hypertension: Yes - PULMONARY Hx Respiratory Disorders: Yes (seasonal allergies) Hx Pneumonia: Yes (CHILDHOOD) - NEUROLOGICAL HX Cerebrovascular Accident: Yes - HEENT Hx HEENT Problems: Yes Hx Cataracts: Yes (BILAT IOL) - RENAL Hx Chronic Kidney Disease: Yes (RENAL INSUFFICIENCY) - ENDOCRINE/METABOLIC Hx Diabetes Mellitus Type 2: Yes - HEMATOLOGICAL/ONCOLOGICAL Hx Blood Disorders: Yes Hx Anemia: Yes Hx Blood Transfusions: Yes Hx Blood Transfusion Reaction: No - INTEGUMENTARY Hx Dermatological Problems: Yes Hx Hamm: Yes (right leg) - MUSCULOSKELETAL/RHEUMATOLOGICAL Hx Falls: Yes - GASTROINTESTINAL Hx Gastrointestinal Disorders: Yes (CONSTIPATION) Hx Gall Bladder Disease: Yes (1990) - GENITOURINARY/GYNECOLOGICAL Hx Genitourinary Disorders: No - PSYCHIATRIC Hx Substance Use: No - SURGICAL HISTORY Hx Surgeries: Yes Hx Cataract Extraction: Yes Hx Cardiac Catheterization: Yes Hx Cholecystectomy: Yes Hx Coronary Stent: Yes (RIGHT) Hx Herniorrhaphy: Yes Hx Vascular Surgery: Yes (left carotid ) Other/Comment: skin graft to hamm right leg - ANESTHESIA Hx Anesthesia: Yes Hx Anesthesia Reactions: No Hx Malignant Hyperthermia: No Has any member of the family had a problem w/ anesthesia?: No Meds Allergies/Adverse Reactions: Allergies Allergy/AdvReac Type Severity Reaction Status Date / Time Iodinated Contrast- Oral and Allergy Severe ANAPHYLAXIS Verified 11/18/16 09:05 IV Dye [Iodinated Contrast Media - Oral and] latex Allergy Severe ANAPHYLAXIS Verified 11/18/16 09:05 levofloxacin [From Levaquin] Allergy Severe ANAPHYLAXIS Verified 11/18/16 09:05 moxifloxacin [From Avelox] Allergy Severe ANAPHYLAXIS Verified 11/18/16 09:05 shellfish derived Allergy Severe ANAPHYLAXIS Verified 11/18/16 09:05 - Medications Medications: Current Medications Acetaminophen (Tylenol 325mg Tab) 650 mg PO Q6 PRN PRN Reason: Pain, Mild (1-3) Alprazolam (Xanax) 0.5 mg PO BID PRN PRN Reason: Anxiety Last Admin: 07/07/17 10:01 Dose: 0.5 mg Aspirin (Aspirin Chewable) 81 mg PO DAILY [facility] Last Admin: 07/07/17 09:49 Dose: 81 mg Docusate Sodium (Colace) 100 mg PO BID [facility] Last Admin: 07/07/17 17:40 Dose: 100 mg Enoxaparin Sodium (Lovenox) 40 mg SC DAILY [facility] Last Admin: 07/07/17 09:49 Dose: 40 mg Fenofibrate (Tricor) 145 mg PO QOD6 [facility] Last Admin: 07/06/17 19:59 Dose: Not Given Folic Acid (Folic Acid) 1 mg PO DAILY [facility] Last Admin: 07/07/17 09:49 Dose: 1 mg Gabapentin (Neurontin) 200 mg PO BID [facility] Last Admin: 07/07/17 17:41 Dose: 200 mg Hydromorphone HCl (Dilaudid) 0.5 mg IVP Q4H PRN PRN Reason: Pain, severe (8-10) Last Admin: 07/06/17 07:57 Dose: 0.5 mg Piperacillin Sod/Tazobactam Sod (Zosyn 3.375 Gm Iv Premix) 3.375 gm in 50 mls @ 200 mls/hr IVPB Q6H [facility] Last Admin: 07/07/17 14:20 Dose: 200 mls/hr Vancomycin/Sodium Chloride (Vancomycin 1 Gm/Ns 200 Ml) 1 gm in 200 mls @ 166.6 mls/hr IVPB Q12H [facility] Stop: 07/12/17 14:31 Last Admin: 07/07/17 15:02 Dose: 166.6 mls/hr Metformin HCl (Glucophage Xr) 750 mg PO 1800 [facility] Last Admin: 07/07/17 17:40 Dose: 750 mg Rosuvastatin Calcium (Crestor) 10 mg PO QOD6 [facility] Last Admin: 07/06/17 19:32 Dose: 10 mg Tiotropium [place] (Spiriva) 18 mcg INH RQ24 [facility] Triamterene/HCTZ (Dyazide 25 Mg-37.5 Mg) 1 cap PO QOD6 [facility] Last Admin: 07/06/17 19:58 Dose: Not Given Physical Exam - Constitutional Appears: Non-toxic, Chronically Ill - Head Exam Head Exam: NORMOCEPHALIC - Eye Exam Eye Exam: PERRL. absent: Scleral icterus - ENT Exam ENT Exam: Mucous Membranes Dry, Normal External Ear Exam - Neck Exam Neck exam: Negative for: Lymphadenopathy - Respiratory Exam Respiratory Exam: Decreased Breath Sounds - Cardiovascular Exam Cardiovascular Exam: REGULAR RHYTHM - GI/Abdominal Exam GI & Abdominal Exam: Diminished Bowel Sounds, Soft. absent: Tenderness - Rectal Exam Rectal Exam: Deferred - Exam Exam: NORMAL INSPECTION - Extremities Exam Extremities exam: Positive for: pedal edema, tenderness, pedal pulses present. Negative for: calf tenderness - Back Exam Back exam: absent: CVA tenderness (L), CVA tenderness (R) - Neurological Exam Neurological exam: Alert, CN II-XII Intact, Oriented x3, Reflexes Normal - Psychiatric Exam Psychiatric exam: Normal Mood - Skin Skin Exam: Dry Results - Vital Signs Recent Vital Signs: Last Vital Signs Temp 97.6 F 07/07/17 15:00 Pulse 72 07/07/17 15:00 Resp 20 07/07/17 15:00 BP 115/73 07/07/17 15:00 Pulse Ox 96 07/07/17 15:00 - Labs Result Diagrams: 07/07/17 06:22 07/07/17 06:22 Labs: Laboratory Results - last 24 hr 07/06/17 07/07/17 07/07/17 21:51 06:22 06:22 WBC 10.4 RBC 4.90 Hgb 14.4 Hct 44.7 MCV 91.3 MCH 29.5 MCHC 32.3 L RDW 13.9 Plt Count 348 MPV 8.5 Neut % (Auto) 62.4 Lymph % (Auto) 16.4 L [place] % (Auto) 12.0 H Eos % (Auto) 8.4 H Baso % (Auto) 0.8 Neut # 6.5 Lymph # 1.7 [place] # 1.2 H Eos # 0.9 H Baso # 0.1 Sodium 133 Potassium 3.7 Chloride 100 Carbon Dioxide 27 Anion Gap 10 BUN 13 Creatinine 1.0 Est GFR ( Amer) > 60 Est GFR (Non-Af Amer) 54 POC Glucose (mg/dL) 107 Random Glucose 109 H Calcium 8.3 L Total Bilirubin 0.6 AST 34 ALT 19 Alkaline Phosphatase 55 Total Protein 7.1 Albumin 3.8 Globulin 3.3 Albumin/Globulin Ratio 1.2 07/07/17 07/07/17 07/07/17 06:23 12:07 12:10 WBC RBC Hgb Hct MCV MCH MCHC RDW Plt Count MPV Neut % (Auto) Lymph % (Auto) [place] % (Auto) Eos % (Auto) Baso % (Auto) Neut # Lymph # [place] # Eos # Baso # Sodium Potassium Chloride Carbon Dioxide Anion Gap BUN Creatinine Est GFR ( Amer) Est GFR (Non-Af Amer) POC Glucose (mg/dL) 106 67 62 L Random Glucose Calcium Total Bilirubin AST ALT Alkaline Phosphatase Total Protein Albumin Globulin Albumin/Globulin Ratio 07/07/17 07/07/17 07/07/17 12:44 13:16 16:49 WBC RBC Hgb Hct MCV MCH MCHC RDW Plt Count MPV Neut % (Auto) Lymph % (Auto) [place] % (Auto) Eos % (Auto) Baso % (Auto) Neut # Lymph # [place] # Eos # Baso # Sodium Potassium Chloride Carbon Dioxide Anion Gap BUN Creatinine Est GFR ( Amer) Est GFR (Non-Af Amer) POC Glucose (mg/dL) 123 H 171 H 92 Random Glucose Calcium Total Bilirubin AST ALT Alkaline Phosphatase Total Protein Albumin Globulin Albumin/Globulin Ratio Assessment & Plan - Assessment and Plan (Free Text) Assessment: post op redness and swelling await cultures cont iv rx for 14 days
--- NOTE | 2017-07-07 18:09 | CP.PCM.PN ---
Subjective - Date & Time of Evaluation Date of Evaluation: 07/07/17 Time of Evaluation: 15:00 - Subjective Subjective: PGY-[address] Watson. No acute events noted overnight. Soft cast removed from podiatry today which relieved some of her pain. She is S/P Removal of Right Medial Malleolus Bone cyst/Bone fragment POD#3. Denies headaches, dizziness, cp, palpitations, sob, abdominal pain, urinary symptoms, changes in bowel habits. Objective - Vital Signs/Intake and Output Vital Signs (last 24 hours): Temp Pulse Resp BP Pulse Ox 97.6 F 72 20 115/73 96 07/07/17 15:00 07/07/17 15:00 07/07/17 15:00 07/07/17 15:00 07/07/17 15:00 Intake and Output: 07/07/17 07/07/17 06:59 18:59 Intake Total 320 Balance 320 - Medications Medications: Current Medications Acetaminophen (Tylenol 325mg Tab) 650 mg PO Q6 PRN PRN Reason: Pain, Mild (1-3) Alprazolam (Xanax) 0.5 mg PO BID PRN PRN Reason: Anxiety Last Admin: 07/07/17 10:01 Dose: 0.5 mg Aspirin (Aspirin Chewable) 81 mg PO DAILY [facility] Last Admin: 07/07/17 09:49 Dose: 81 mg Docusate Sodium (Colace) 100 mg PO BID [facility] Last Admin: 07/07/17 17:40 Dose: 100 mg Enoxaparin Sodium (Lovenox) 40 mg SC DAILY [facility] Last Admin: 07/07/17 09:49 Dose: 40 mg Fenofibrate (Tricor) 145 mg PO QOD6 [facility] Last Admin: 07/06/17 19:59 Dose: Not Given Folic Acid (Folic Acid) 1 mg PO DAILY [facility] Last Admin: 07/07/17 09:49 Dose: 1 mg Gabapentin (Neurontin) 200 mg PO BID [facility] Last Admin: 07/07/17 17:41 Dose: 200 mg Hydromorphone HCl (Dilaudid) 0.5 mg IVP Q4H PRN PRN Reason: Pain, severe (8-10) Last Admin: 07/06/17 07:57 Dose: 0.5 mg Piperacillin Sod/Tazobactam Sod (Zosyn 3.375 Gm Iv Premix) 3.375 gm in 50 mls @ 200 mls/hr IVPB Q6H [facility] Last Admin: 07/07/17 14:20 Dose: 200 mls/hr Vancomycin/Sodium Chloride (Vancomycin 1 Gm/Ns 200 Ml) 1 gm in 200 mls @ 166.6 mls/hr IVPB Q12H [facility] Stop: 07/12/17 14:31 Last Admin: 07/07/17 15:02 Dose: 166.6 mls/hr Metformin HCl (Glucophage Xr) 750 mg PO 1800 [facility] Last Admin: 07/07/17 17:40 Dose: 750 mg Rosuvastatin Calcium (Crestor) 10 mg PO QOD6 [facility] Last Admin: 07/06/17 19:32 Dose: 10 mg Tiotropium [place] (Spiriva) 18 mcg INH RQ24 [facility] Triamterene/HCTZ (Dyazide 25 Mg-37.5 Mg) 1 cap PO QOD6 [facility] Last Admin: 07/06/17 19:58 Dose: Not Given - Labs Labs: 07/07/17 06:22 07/07/17 06:22 - Additional Findings Additional findings: Appears: Well, Non-toxic - Head Exam Head Exam: ATRAUMATIC, NORMAL INSPECTION - Eye Exam Eye Exam: EOMI, Normal appearance - ENT Exam ENT Exam: Mucous Membranes Moist - Neck Exam Neck exam: Positive for: Full Rom - Respiratory Exam Respiratory Exam: Clear to Auscultation Bilateral, NORMAL BREATHING PATTERN. absent: Rales, Rhonchi, Wheezes - Cardiovascular Exam Cardiovascular Exam: REGULAR RHYTHM, +S1, +S2. absent: Systolic Murmur - GI/Abdominal Exam GI & Abdominal Exam: Normal Bowel Sounds, Soft. absent: Guarding, Hernia, Rebound, Rigid, Tenderness - Extremities Exam Additional comments: Right lower extremity w/ dressing which was c/d/i, patient able to move toes and sensation is intact + pedal pulses on the left lower extremity - Neurological Exam Neurological exam: Alert, Oriented x3 - Psychiatric Exam Psychiatric exam: Normal Affect, Normal Mood - Skin Skin Exam: Dry, Normal Color, Warm Assessment and Plan - Assessment and Plan (Free Text) Assessment: 1. s/p Right Medial Malleolus Bone cyst/Bone fragment removal POD#0 -s/p Right Medial Malleolus Bone cyst/Bone fragment removal POD#1 -Podiatry on consult, Dr Conrad, help appreciated * continue nonweightbearing with posterior splint and crutches/walker to RLE * d/c cefazolin 07/06/17 -Restarted abx due to increased redness near surgical site * Vancomycin 1g IVP BID, started 07/07/17 * Zosyn 3.375g IVP QID, started 07/07/17 -Consult ID, Dr Pfeiffer * Continue IV abx for 14 days, started 07/07/17 -Stable, afebrile -Pain control: Percocet 1 tab PO Q4H prn; Dilaudid 0.5mg IVP Q4H PRN -Physical therapy/Occupational therapy evaluation ordered -Social work referral 2. History of CAD s/p stent placement -Continue Aspirin 81mg PO daily -Continue Crestor 10mg PO QOD -Continue Fenofibrate 145mg PO QOD 3. History of Diabetes Mellitus, peripheral neuropathy -Continue Metformin ER 750mg daily -Accuchecks ACHS -Gabapentin 200mg PO BID -Carbohydrate consistent diet 4. History of Hypertension -Continue Triamterene/HCTZ 37.5/25mg PO QOD -Monitor vitals 5. History of Hyperlipidemia -Continue Crestor 10mg PO QOD -Continue Fenofibrate 145mg PO QOD 6. History of CVA with residual speech deficit -Continue Aspirin 81mg PO daily -Continue Crestor 10mg PO QOD -Continue Fenofibrate 145mg PO QOD 7. Anxiety -Xanax 0.5mg BID prn Prophylactic Measures -Protonix 40mg PO daily -SCDS (left foot only), Heparin 5000u SC Q8H -Lovenox 40 SC daily (to start 07/06) DISPOSITION: Patient will be discharged to subacute rehab facility
--- NOTE | 2017-07-07 21:11 | CP.PCM.PN ---
Subjective - Date & Time of Evaluation Date of Evaluation: 07/07/17 Time of Evaluation: 11:40 - Subjective Subjective: pt was seen this am s/p ankle surgery . States she was feeling better until PT and placing foot dependent and after she developed severe pain in ankle region . We inspected area and noted erythema at dorsum of ankle region . Incision site well coapted with no drainage . Afebrile. Vanco/Zosyn was started and I&D consult was ordered .WE will monitor closely. Objective - Vital Signs/Intake and Output Vital Signs (last 24 hours): Temp Pulse Resp BP Pulse Ox 97.6 F 72 20 115/73 96 07/07/17 15:00 07/07/17 15:00 07/07/17 15:00 07/07/17 15:00 07/07/17 15:00 - Medications Medications: Current Medications Acetaminophen (Tylenol 325mg Tab) 650 mg PO Q6 PRN PRN Reason: Pain, Mild (1-3) Alprazolam (Xanax) 0.5 mg PO BID PRN PRN Reason: Anxiety Last Admin: 07/07/17 10:01 Dose: 0.5 mg Aspirin (Aspirin Chewable) 81 mg PO DAILY [facility] Last Admin: 07/07/17 09:49 Dose: 81 mg Docusate Sodium (Colace) 100 mg PO BID [facility] Last Admin: 07/07/17 17:40 Dose: 100 mg Enoxaparin Sodium (Lovenox) 40 mg SC DAILY [facility] Last Admin: 07/07/17 09:49 Dose: 40 mg Fenofibrate (Tricor) 145 mg PO QOD6 [facility] Last Admin: 07/06/17 19:59 Dose: Not Given Folic Acid (Folic Acid) 1 mg PO DAILY [facility] Last Admin: 07/07/17 09:49 Dose: 1 mg Gabapentin (Neurontin) 200 mg PO BID [facility] Last Admin: 07/07/17 17:41 Dose: 200 mg Hydromorphone HCl (Dilaudid) 0.5 mg IVP Q4H PRN PRN Reason: Pain, severe (8-10) Last Admin: 07/06/17 07:57 Dose: 0.5 mg Piperacillin Sod/Tazobactam Sod (Zosyn 3.375 Gm Iv Premix) 3.375 gm in 50 mls @ 200 mls/hr IVPB Q6H [facility] Last Admin: 07/07/17 19:59 Dose: 200 mls/hr Vancomycin/Sodium Chloride (Vancomycin 1 Gm/Ns 200 Ml) 1 gm in 200 mls @ 166.6 mls/hr IVPB Q12H [facility] Stop: 07/12/17 14:31 Last Admin: 07/07/17 15:02 Dose: 166.6 mls/hr Metformin HCl (Glucophage Xr) 750 mg PO 1800 [facility] Last Admin: 07/07/17 17:40 Dose: 750 mg Rosuvastatin Calcium (Crestor) 10 mg PO QOD6 [facility] Last Admin: 07/06/17 19:32 Dose: 10 mg Tiotropium [place] (Spiriva) 18 mcg INH RQ24 [facility] Triamterene/HCTZ (Dyazide 25 Mg-37.5 Mg) 1 cap PO QOD6 [facility] Last Admin: 07/06/17 19:58 Dose: Not Given - Labs Labs: 07/07/17 06:22 07/07/17 06:22
[2017-07-08] MEDS: Piperacill/Tazo 3.375gm in Dex 3.375 GM/50 ML BAG IVPB SCH ×3 (01:05→14:40)
[2017-07-08] MEDS: Vancomycin 1 gm/NS 200 ml 1 GM/200 ML BAG IVPB SCH ×2 (01:47→16:09)
[2017-07-08 06:28] LABS: BASO # 0.1 K/uL (0.0-0.2); BASO % 0.9 % (0.0-2.0); EOS # 0.9 K/uL (0.0-0.7); EOS % 10.9 % (0.0-4.0); HEMOGLOBIN 14.2 g/dL (11.0-16.0); LYMPH # 1.3 K/uL (1.0-4.3); LYMPH % 15.2 % (20.0-40.0); MEAN CORPUSCULAR HEMOGLOBIN 30.7 pg (27.0-31.0); MEAN CORPUSCULAR HGB CONC 33.7 g/dL (33.0-37.0); MEAN PLATELET VOLUME 8.3 fL (7.2-11.7); MONO # 0.9 K/uL (0.0-0.8); MONO % 10.3 % (0.0-10.0); NEUT # 5.4 K/uL (1.8-7.0); NEUT % 62.7 % (50.0-75.0); RBC 4.62 Mil/uL (3.80-5.20); RED CELL DISTRIBUTION WIDTH 13.8 % (11.5-14.5); WHITE BLOOD COUNT 8.6 K/uL (4.8-10.8)
[2017-07-08 06:51] LABS: ALB/GLOB RATIO 1.2 (1.0-2.1); ALBUMIN 3.5 g/dL (3.5-5.0); CALCIUM 8.1 mg/dl (8.6-10.4)
--- NOTE | 2017-07-08 07:20 | CP.PCM.PN ---
Subjective - Date & Time of Evaluation Date of Evaluation: 07/08/17 Time of Evaluation: 07:15 - Subjective Subjective: PGY-[address] Watson. No acute events noted overnight. She is S/P Removal of Right Medial Malleolus Bone cyst/Bone fragment POD#4. Soft cast removed from podiatry 2 days ago which relieved some of her pain. Had PT yesterday and placed weight on foot which resulted in pain. States today the pain is better. Denies headaches, dizziness, cp, palpitations, sob, abdominal pain, urinary symptoms, changes in bowel habits. Objective - Vital Signs/Intake and Output Vital Signs (last 24 hours): Temp Pulse Resp BP Pulse Ox 98.3 F 80 20 141/62 92 L 07/07/17 23:30 07/07/17 23:30 07/07/17 23:30 07/07/17 23:30 07/07/17 23:30 - Medications Medications: Current Medications Acetaminophen (Tylenol 325mg Tab) 650 mg PO Q6 PRN PRN Reason: Pain, Mild (1-3) Alprazolam (Xanax) 0.5 mg PO BID PRN PRN Reason: Anxiety Last Admin: 07/07/17 21:30 Dose: 0.5 mg Aspirin (Aspirin Chewable) 81 mg PO DAILY [facility] Last Admin: 07/07/17 09:49 Dose: 81 mg Docusate Sodium (Colace) 100 mg PO BID [facility] Last Admin: 07/07/17 17:40 Dose: 100 mg Enoxaparin Sodium (Lovenox) 40 mg SC DAILY [facility] Last Admin: 07/07/17 09:49 Dose: 40 mg Fenofibrate (Tricor) 145 mg PO QOD6 [facility] Last Admin: 07/06/17 19:59 Dose: Not Given Folic Acid (Folic Acid) 1 mg PO DAILY [facility] Last Admin: 07/07/17 09:49 Dose: 1 mg Gabapentin (Neurontin) 200 mg PO BID [facility] Last Admin: 07/07/17 17:41 Dose: 200 mg Hydromorphone HCl (Dilaudid) 0.5 mg IVP Q4H PRN PRN Reason: Pain, severe (8-10) Last Admin: 07/06/17 07:57 Dose: 0.5 mg Piperacillin Sod/Tazobactam Sod (Zosyn 3.375 Gm Iv Premix) 3.375 gm in 50 mls @ 200 mls/hr IVPB Q6H [facility] Last Admin: 07/08/17 01:05 Dose: 200 mls/hr Vancomycin/Sodium Chloride (Vancomycin 1 Gm/Ns 200 Ml) 1 gm in 200 mls @ 166.6 mls/hr IVPB Q12H [facility] Stop: 07/12/17 14:31 Last Admin: 07/08/17 01:47 Dose: 166.6 mls/hr Metformin HCl (Glucophage Xr) 750 mg PO 1800 [facility] Last Admin: 07/07/17 17:40 Dose: 750 mg Rosuvastatin Calcium (Crestor) 10 mg PO QOD6 [facility] Last Admin: 07/06/17 19:32 Dose: 10 mg Tiotropium [place] (Spiriva) 18 mcg INH RQ24 [facility] Triamterene/HCTZ (Dyazide 25 Mg-37.5 Mg) 1 cap PO QOD6 [facility] Last Admin: 07/06/17 19:58 Dose: Not Given - Labs Labs: 07/08/17 06:20 07/08/17 06:20 - Additional Findings Additional findings: Appears: Well, Non-toxic - Head Exam Head Exam: ATRAUMATIC, NORMAL INSPECTION - Eye Exam Eye Exam: EOMI, Normal appearance - ENT Exam ENT Exam: Mucous Membranes Moist - Neck Exam Neck exam: Positive for: Full Rom - Respiratory Exam Respiratory Exam: Clear to Auscultation Bilateral, NORMAL BREATHING PATTERN. absent: Rales, Rhonchi, Wheezes - Cardiovascular Exam Cardiovascular Exam: REGULAR RHYTHM, +S1, +S2. absent: Systolic Murmur - GI/Abdominal Exam GI & Abdominal Exam: Normal Bowel Sounds, Soft. absent: Guarding, Hernia, Rebound, Rigid, Tenderness - Extremities Exam Additional comments: Right lower extremity w/ dressing which was c/d/i, patient able to move toes and sensation is intact + pedal pulses on the left lower extremity - Neurological Exam Neurological exam: Alert, Oriented x3 - Psychiatric Exam Psychiatric exam: Normal Affect, Normal Mood - Skin Skin Exam: Dry, Normal Color, Warm Assessment and Plan - Assessment and Plan (Free Text) Assessment: 1. s/p Right Medial Malleolus Bone cyst/Bone fragment removal POD#0 -s/p Right Medial Malleolus Bone cyst/Bone fragment removal POD#1 -Podiatry on consult, Dr Conrad, help appreciated * continue nonweightbearing with posterior splint and crutches/walker to RLE * d/c cefazolin 07/06/17 -Restarted abx due to increased redness near surgical site after bearing weight during PT * Vancomycin 1g IVP BID, started 07/07/17 * Zosyn 3.375g IVP QID, started 07/07/17 -Consult ID, Dr Pfeiffer * Continue IV abx for 14 days, started 07/07/17 -Stable, afebrile -Pain control: Percocet 1 tab PO Q4H prn; Dilaudid 0.5mg IVP Q4H PRN -Physical therapy/Occupational therapy evaluation ordered -Social work referral 2. History of CAD s/p stent placement -Continue Aspirin 81mg PO daily -Continue Crestor 10mg PO QOD -Continue Fenofibrate 145mg PO QOD 3. History of Diabetes Mellitus, peripheral neuropathy -Continue Metformin ER 750mg daily -Accuchecks ACHS -Gabapentin 200mg PO BID -Carbohydrate consistent diet 4. History of Hypertension -Continue Triamterene/HCTZ 37.5/25mg PO QOD -Monitor vitals 5. History of Hyperlipidemia -Continue Crestor 10mg PO QOD -Continue Fenofibrate 145mg PO QOD 6. History of CVA with residual speech deficit -Continue Aspirin 81mg PO daily -Continue Crestor 10mg PO QOD -Continue Fenofibrate 145mg PO QOD 7. Anxiety -Xanax 0.5mg BID prn Prophylactic Measures -Protonix 40mg PO daily -SCDS (left foot only), Heparin 5000u SC Q8H -Lovenox 40 SC daily (to start 07/06) DISPOSITION: Patient will be discharged to subacute rehab facility
[2017-07-08 08:47] VITALS: O2SAT 95
[2017-07-08] MEDS: Enoxaparin 40 mg Syringe SC SCH (09:28)
--- NOTE | 2017-07-08 09:57 | CP.PCM.PN ---
Subjective - Date & Time of Evaluation Date of Evaluation: 07/08/17 Time of Evaluation: 09:54 - Subjective Subjective: pt seen this am s/p ankle surgery . states she feel better today . less erythema noted and small blister ruptured anterior ankle area. incision well coapted sterile dressing applied .cont rx antibiotics. pt is afebrile. WBC 8.6 Objective - Vital Signs/Intake and Output Vital Signs (last 24 hours): Temp Pulse Resp BP Pulse Ox 98.1 F 71 20 133/71 95 07/08/17 07:35 07/08/17 07:35 07/08/17 07:35 07/08/17 07:35 07/08/17 07:35 - Medications Medications: Current Medications Acetaminophen (Tylenol 325mg Tab) 650 mg PO Q6 PRN PRN Reason: Pain, Mild (1-3) Alprazolam (Xanax) 0.5 mg PO BID PRN PRN Reason: Anxiety Last Admin: 07/07/17 21:30 Dose: 0.5 mg Aspirin (Aspirin Chewable) 81 mg PO DAILY [facility] Last Admin: 07/08/17 09:28 Dose: 81 mg Docusate Sodium (Colace) 100 mg PO BID [facility] Last Admin: 07/08/17 09:27 Dose: 100 mg Enoxaparin Sodium (Lovenox) 40 mg SC DAILY [facility] Last Admin: 07/08/17 09:28 Dose: 40 mg Fenofibrate (Tricor) 145 mg PO QOD6 [facility] Last Admin: 07/06/17 19:59 Dose: Not Given Folic Acid (Folic Acid) 1 mg PO DAILY [facility] Last Admin: 07/08/17 09:28 Dose: 1 mg Gabapentin (Neurontin) 200 mg PO BID [facility] Last Admin: 07/08/17 09:27 Dose: 200 mg Hydromorphone HCl (Dilaudid) 0.5 mg IVP Q4H PRN PRN Reason: Pain, severe (8-10) Last Admin: 07/06/17 07:57 Dose: 0.5 mg Piperacillin Sod/Tazobactam Sod (Zosyn 3.375 Gm Iv Premix) 3.375 gm in 50 mls @ 200 mls/hr IVPB Q6H [facility] Last Admin: 07/08/17 08:11 Dose: 200 mls/hr Vancomycin/Sodium Chloride (Vancomycin 1 Gm/Ns 200 Ml) 1 gm in 200 mls @ 166.6 mls/hr IVPB Q12H [facility] Stop: 07/12/17 14:31 Last Admin: 07/08/17 01:47 Dose: 166.6 mls/hr Metformin HCl (Glucophage Xr) 750 mg PO 1800 [facility] Last Admin: 07/07/17 17:40 Dose: 750 mg Rosuvastatin Calcium (Crestor) 10 mg PO QOD6 [facility] Last Admin: 07/06/17 19:32 Dose: 10 mg Tiotropium [place] (Spiriva) 18 mcg INH RQ24 [facility] Triamterene/HCTZ (Dyazide 25 Mg-37.5 Mg) 1 cap PO QOD6 [facility] Last Admin: 07/06/17 19:58 Dose: Not Given - Labs Labs: 07/08/17 06:20 07/08/17 06:20
--- NOTE | 2017-07-08 15:17 | RAD ---
HISTORY: verify right PICC COMPARISON: 06/16/2017 FINDINGS: The right PICC line terminates at the cavoatrial junction. LUNGS: The lungs are clear. PLEURA: No significant pleural effusion identified, no pneumothorax apparent. CARDIOVASCULAR: Normal. OSSEOUS STRUCTURES: No significant abnormalities. VISUALIZED UPPER ABDOMEN: Normal. OTHER FINDINGS: None. IMPRESSION: Right PICC line terminates at the cavoatrial junction. No active pulmonary disease.
[2017-07-08 16:03] VITALS: BP 114/57; PULSE 87; RESP 18; TEMP 97.8
--- NOTE | 2017-07-08 16:45 | CP.PCM.DIS ---
Provider - Provider Date of Admission: 07/04/17 11:58 Attending physician: Terry Wilcox MD Primary care physician: PMD: Dr Albarran Consults: Cardio: Dr Barba Time Spent in preparation of Discharge (in minutes): 44 Diagnosis - Discharge Diagnosis (1) Status post surgery Status: Acute Priority: High Hospital Course - Lab Results Lab Results: Most Recent Lab Values WBC 8.6 K/uL (4.8-10.8) 07/08/17 06:20 RBC 4.62 Mil/uL (3.80-5.20) 07/08/17 06:20 Hgb 14.2 g/dL (11.0-16.0) 07/08/17 06:20 Hct 42.0 % (34.0-47.0) 07/08/17 06:20 MCV 91.0 fL (81.0-99.0) 07/08/17 06:20 MCH 30.7 pg (27.0-31.0) 07/08/17 06:20 MCHC 33.7 g/dL (33.0-37.0) 07/08/17 06:20 RDW 13.8 % (11.5-14.5) 07/08/17 06:20 Plt Count 346 K/uL (130-400) 07/08/17 06:20 MPV 8.3 fL (7.2-11.7) 07/08/17 06:20 Neut % (Auto) 62.7 % (50.0-75.0) 07/08/17 06:20 Lymph % (Auto) 15.2 % (20.0-40.0) L 07/08/17 06:20 [place] % (Auto) 10.3 % (0.0-10.0) H 07/08/17 06:20 Eos % (Auto) 10.9 % (0.0-4.0) H 07/08/17 06:20 Baso % (Auto) 0.9 % (0.0-2.0) 07/08/17 06:20 Neut # 5.4 K/uL (1.8-7.0) 07/08/17 06:20 Lymph # 1.3 K/uL (1.0-4.3) 07/08/17 06:20 [place] # 0.9 K/uL (0.0-0.8) H 07/08/17 06:20 Eos # 0.9 K/uL (0.0-0.7) H 07/08/17 06:20 Baso # 0.1 K/uL (0.0-0.2) 07/08/17 06:20 Sodium 134 mmol/L (132-148) 07/08/17 06:20 Potassium 3.6 mmol/L (3.6-5.2) 07/08/17 06:20 Chloride 99 mmol/L (98-107) 07/08/17 06:20 Carbon Dioxide 27 mmol/L (22-30) 07/08/17 06:20 Anion Gap 12 (10-20) 07/08/17 06:20 BUN 16 mg/dL (7-17) 07/08/17 06:20 Creatinine 1.2 mg/dL (0.7-1.2) 07/08/17 06:20 Est GFR ( Amer) 53 07/08/17 06:20 Est GFR (Non-Af Amer) 44 07/08/17 06:20 POC Glucose (mg/dL) 102 mg/dL (65-110) 07/08/17 11:20 Random Glucose 103 mg/dL (65-105) 07/08/17 06:20 Calcium 8.1 mg/dl (8.6-10.4) L 07/08/17 06:20 Total Bilirubin 0.7 mg/dL (0.2-1.3) 07/08/17 06:20 AST 32 U/L (14-36) 07/08/17 06:20 ALT 16 U/L (9-52) 07/08/17 06:20 Alkaline Phosphatase 51 U/L (38-126) 07/08/17 06:20 Total Protein 6.6 g/dL (6.3-8.3) 07/08/17 06:20 Albumin 3.5 g/dL (3.5-5.0) 07/08/17 06:20 Globulin 3.0 gm/dL (2.2-3.9) 07/08/17 06:20 Albumin/Globulin Ratio 1.2 (1.0-2.1) 07/08/17 06:20 - Hospital Course Hospital Course: Patient is a 76 year old female with past medical history of CAD s/p stent placement, CVA in 2003, HTN, DM, Anxiety, Hyperlipidemia who is S/P Removal of Right Medial Malleolus Bone cyst/Bone fragment POD#0. Patient states that a year ago she was sleeping in bed when she rolled off of the bed and onto the floor. At that time she injured her right ankle. Since the injury, patient states that she has been using a cane, and has gotten injections with minimal to no relief. Patient lives alone. During the interview patient was complaining of 10/10 pain. Denies headaches, dizziness, cp, palpitations, sob, abdominal pain, urinary symptoms, changes in bowel habits. PMD: Dr Albarran Cardiology: Dr Barba Pharmacy: [facility] Allergies: Iodinated contrast, shellfish, Levofloxacin, Avelox, Latex Medications: Folic Acid 1mg daily, Triamterene/HCTZ 37.5/25mg QOD, Xanax 0.5mg BID, Metformin ER 750mg daily, Aricept 10mg PO HS, Gabapentin 200mg PO TID, Fenofibrate 145mg PO QOD, Crestor 5mg PO QOD, ASA 81mg Medical Hx: CAD s/p stent placement, CVA in 2004, HTN, Diabetes Mellitus, Anxiety, Hyperlipidemia Surgical Hx: Cholecystectomy, Skin graft, Ventral hernia repair, Left Carotid Endarterectomy, R coronary stent placement Social Hx: Smoked cigarettes for almost 40 years, quit in 2003 however started smoking again (smoked a "couple" of packs in the last two weeks because she was anxious and got into an incident with someone), Drinking 3-4 glasses of vodka in a month, Denies drug use; ambulates with a cane, lives alone, has two living children (one lives in [place] and the other lives in [place]) Family Hx: Mother - Thyroid issues, Son - Glaucoma Hospital Course: This patient was admitted to the service s/p right medial malleolus bone cyst removal/bone fragment removal. Podiatry was consulted and she was given non-weight bearing exercises for her right lower extremity. Pain was managed with percocet and dilaudid prn. Also, PT/OT evaluation was ordered for this patient. Cefazolin was started and discontinued on 07/06/17 as she was afebrile and no signs of infection were noted. She is stable and incision site is well coapted. Her chronic medical conditions include CAD s/p stent placement, DM, hypertension , hyperlipidemia, history of CVA, and anxiety. They were all managed appropriately. Last progress note is shown below for a more detailed picture of this hospital stay. She will be discharged to a sub-acute rehab facility. 1. s/p Right Medial Malleolus Bone cyst/Bone fragment removal POD#0 -s/p Right Medial Malleolus Bone cyst/Bone fragment removal POD#1 -Podiatry on consult, Dr Conrad, help appreciated * continue nonweightbearing with posterior splint and crutches/walker to RLE * d/c cefazolin 07/06/17 -Restarted abx due to increased redness near surgical site after bearing weight during PT * Vancomycin 1g IVP BID, started 07/07/17 * Zosyn 3.375g IVP QID, started 07/07/17 -Consult ID, Dr Pfeiffer * Continue IV abx for 14 days, started 07/07/17 -Stable, afebrile -Pain control: Percocet 1 tab PO Q4H prn; Dilaudid 0.5mg IVP Q4H PRN -Physical therapy/Occupational therapy evaluation ordered -Social work referral 2. History of CAD s/p stent placement -Continue Aspirin 81mg PO daily -Continue Crestor 10mg PO QOD -Continue Fenofibrate 145mg PO QOD 3. History of Diabetes Mellitus, peripheral neuropathy -Continue Metformin ER 750mg daily -Accuchecks ACHS -Gabapentin 200mg PO BID -Carbohydrate consistent diet 4. History of Hypertension -Continue Triamterene/HCTZ 37.5/25mg PO QOD -Monitor vitals 5. History of Hyperlipidemia -Continue Crestor 10mg PO QOD -Continue Fenofibrate 145mg PO QOD 6. History of CVA with residual speech deficit -Continue Aspirin 81mg PO daily -Continue Crestor 10mg PO QOD -Continue Fenofibrate 145mg PO QOD 7. Anxiety -Xanax 0.5mg BID prn Prophylactic Measures -Protonix 40mg PO daily -SCDS (left foot only), Heparin 5000u SC Q8H -Lovenox 40 SC daily (to start 07/06) DISPOSITION: Patient will be discharged to subacute rehab facility Discharge Exam - Head Exam Head Exam: NORMOCEPHALIC - Additional Findings Additional findings: Appears: Well, Non-toxic - Head Exam Head Exam: ATRAUMATIC, NORMAL INSPECTION - Eye Exam Eye Exam: EOMI, Normal appearance - ENT Exam ENT Exam: Mucous Membranes Moist - Neck Exam Neck exam: Positive for: Full Rom - Respiratory Exam Respiratory Exam: Clear to Auscultation Bilateral, NORMAL BREATHING PATTERN. absent: Rales, Rhonchi, Wheezes - Cardiovascular Exam Cardiovascular Exam: REGULAR RHYTHM, +S1, +S2. absent: Systolic Murmur - GI/Abdominal Exam GI & Abdominal Exam: Normal Bowel Sounds, Soft. absent: Guarding, Hernia, Rebound, Rigid, Tenderness - Extremities Exam Additional comments: Right lower extremity w/ dressing which was c/d/i, patient able to move toes and sensation is intact + pedal pulses on the left lower extremity - Neurological Exam Neurological exam: Alert, Oriented x3 - Psychiatric Exam Psychiatric exam: Normal Affect, Normal Mood - Skin Skin Exam: Dry, Normal Color, Warm Discharge Plan - Follow Up Plan Condition: GOOD Disposition: REHAB FACILITY/REHAB UNIT Instructions: Wound Infection (DC), Heart Healthy Diet (DC), Pain Management After Surgery (DC) Additional Instructions: Patient is medically stable for discharge to subacute rehab. Patient is with a PICC line and will need to receive the following antibiotics for 12 more days (starting 07/09/17 through 07/20/17): 1. Vancomycin 1g IVP Q12H 2. Zosyn 3.375g IVP Q6H The patient may continue her normal home medications. During her stay here we continued the followin. Aspirin 81mg PO QD 2. Finofibrate 145mg PO QOD6 3. Gabapentin 200mg PO BID 4. Dyazide 25mg-37.5mg 1 cap PO QOD6 5. Metformin 750mg PO 1800 6. Rosuvastatin 10mg PO QOD6 7. Tiotropium 18mcg INH RQ24 8. Alprazolam 0.5mg PO BID She will need wound care regarding his right foot as well as physical therapy as tolerated. If symptoms return or worsen, please have patient return to ER. Referrals: Gabriel Conrad DPM [Staff Provider] -
== END 2017-07-08 18:11 | DRG 494 ==
LOC: C.SDS 07:05 → C.9S 11:58 → C.6T 21:27
PROVIDERS: ADMIT Family Medicine; ATTEND Family Medicine
PROC: 0QBG0ZZ Excision of Right Tibia, Open Approach (ICD-10-PCS; principal; 2017-07-04 08:00)
DX: M85.671 Other cyst of bone, right ankle and foot (principal); E11.22 Type 2 diabetes mellitus with diabetic chronic kidney disease; E11.42 Type 2 diabetes mellitus with diabetic polyneuropathy; E78.00 Pure hypercholesterolemia, unspecified; F17.200 Nicotine dependence, unspecified, uncomplicated; F41.9 Anxiety disorder, unspecified; G89.29 Other chronic pain; I12.9 Hypertensive chronic kidney disease with stage 1 through stage 4 chronic kidney disease, or unspecified chronic kidney disease; I25.10 Atherosclerotic heart disease of native coronary artery without angina pectoris; N18.9 Chronic kidney disease, unspecified; Z79.82 Long term (current) use of aspirin; Z87.01 Personal history of pneumonia (recurrent); Z90.49 Acquired absence of other specified parts of digestive tract; Z91.81 History of falling; Z95.5 Presence of coronary angioplasty implant and graft; I69.328 Other speech and language deficits following cerebral infarction